=== PATIENT | female | born 1985 | race African-American/Black ===

== ENCOUNTER 2017-12-03 07:12 | Day surgery (SDC) | payer MEDICAID ==
[~2017-12-03] VITALS: Ht 167.6 cm; Wt 90.7 kg
--- NOTE | ~2017-12-03 | OP ---
PATIENT NAME: RANJEET SANTIAGO MEDICAL RECORD: [id number] :87 LOCATION:[facility] ADMISSION DATE: SURGEON: NICHOLE NEAL MD DATE OF OPERATION: 12/03/2017 PREOPERATIVE DIAGNOSES: Chronic tonsillitis and adenotonsillar hypertrophy. POSTOPERATIVE DIAGNOSES: Chronic tonsillitis and adenotonsillar hypertrophy. PROCEDURE: Tonsillectomy and adenoidectomy. SURGEON: Nichole Neal MD ANESTHESIA: General orotracheal. BLOOD LOSS: Less than 10 cc. SPECIMENS: Right and left tonsil. COMPLICATIONS: None. DISPOSITION: Recovery stable. FINDINGS: Enormous 4+ caseous tonsils, 2+ adenoids. PROCEDURE IN DETAIL: She was brought to the operating room and placed in supine position, sedated and intubated by anesthesia. The eyes were taped. Table was turned 90 degrees. Head drapes applied. She was positioned for tonsillectomy. Using a headlight, a Leland-Randall mouth gag was carefully inserted and elevated on a towel on her chest. The palate was examined and palpated was normal. A red rubber catheter was placed to the right side of the nose and the pharynx was grasped with tonsil clamp to retract the soft palate. Using a mirror, the nasopharynx was examined. Suction cautery on a setting of 35 was used to ablate and suction the adenoid pad. There was no significant bleeding. The red rubber catheter was let down and removed. The right tonsil was grasped at the superior pole with a straight Allis clamp. Spatula cautery on a setting of 9 was used to dissect out the tonsil along its capsule, preserving the anterior and posterior tonsillar pillar. The left tonsil was removed in the same fashion. Then, both sides of the nose were irrigated with saline. The pharynx was suctioned. Tonsillar fossae were agitated. Suction cautery on a setting of 20 was used to control minimal oozing. With the field clean and dry, she was awakened, extubated, and transported to recovery in good condition. No complications. TRANSINT:[id number] Voice Confirmation ID: [id number] DOCUMENT ID: [id number] NICHOLE NEAL MD at 1257 CC: [id number] DICTATION DATE: 12/03/17 1038 COSMETICS COUNTER MANAGER: 12/03/17 1448 [facility] 12/03/17 [place] [id number] [place] [address]
--- NOTE | ~2017-12-03 | HP ---
PATIENT: MARLENE SANTIAGO MEDICAL RECORD: [id number] ACCOUNT: [id number] LOCATION:[facility] : 87 ADMISSION DATE: 12/03/17 HISTORY AND PHYSICAL EXAMINATION HISTORY: Marlene is 32 years old. She is having significant problems with recurrent pharyngitis and obstructive hypertrophy. She is being admitted for tonsillectomy and adenoidectomy. PAST MEDICAL HISTORY: Includes migraines. PAST SURGICAL HISTORY: None. CURRENT MEDICATIONS: Imitrex, amitriptyline, butalbital. ALLERGIES: No known drug allergies. PHYSICAL EXAMINATION: GENERAL: She is healthy-appearing, developmentally normal. FACE: Normal, symmetric, no lesions. EYES: Sclerae and conjunctivae are normal. EARS: Canals and TMs are normal. NOSE: No mass, polyps or drainage. ORAL CAVITY AND OROPHARYNX: A 4+ kissing tonsils. NECK: No masses, no adenopathy. CHEST: Clear. CARDIOVASCULAR: Regular rate and rhythm, no murmur. EXTREMITIES: Normal. IMPRESSION: Recurrent pharyngitis, significant tonsillar hypertrophy, and tonsil asymmetry. PLAN: Tonsillectomy and adenoidectomy. TRANSINT:[id number] Voice Confirmation ID: [id number] DOCUMENT ID: [id number] NICHOLE ROQUE MD at 1349 CC: [id number] DICTATION DATE: 12/02/17 1117 COMMUTATOR UNDERCUTTER: 12/02/17 1241 [facility] 12/03/[address] [address]
[2017-12-03] MEDS ORDERED: SUMATRIPTAN SUC25 MG PO (07:43)
[2017-12-03] MEDS ORDERED: ESGIC TABLET1 TAB PO (07:44)
[2017-12-03] MEDS ORDERED: ELAVIL10 MG PO (07:44)
[2017-12-03 08:00] VITALS: BP 127/84; Ht 167.6 cm; Wt 90.7 kg
[2017-12-03 08:02] LABS: HEMATOCRIT 35.7 % (36.0-48.0); HEMOGLOBIN 12.2 g/dL (12-16); MCH 30.3 pg (26.0-34.0); MCHC 34.2 g/dL (31.0-37.0); MCV 88.6 fL (80.0-100.0); MEAN PLATELET VOLUME 10.2 fL (7.4-10.4); RBC 4.03 10x6/uL (4.00-5.40); RDW 12.9 % (11.5-14.5); WBC 5.3 10x3/uL (4.8-10.8)
[2017-12-03 08:21] LABS: HCG URINE NEGATIVE (NEGATIVE)
== END 2017-12-03 12:10 | disposition home or self-care (01) ==
LOC: D.OPS 07:12 → D.PAN 09:15 → D.OPS 12:10
PROVIDERS: Anesthesiology; Otolaryngology
DX: J35.01 Chronic tonsillitis (principal); J35.3 Hypertrophy of tonsils with hypertrophy of adenoids; Z01.812 Encounter for preprocedural laboratory examination